=== PATIENT | male | born 1985 | race Native Hawaiian/Other Pacific Islander ===

== ENCOUNTER 2019-11-15 13:53 | Emergency (ER) | payer OTHER ==
[~2019-11-15] VITALS: Ht 170.2 cm; Wt 81.6 kg
[2019-11-15 13:53] VITALS: TEMP 99
[2019-11-15 14:11] LABS: PLATELET COUNT 296 K/uL (142-355)
[2019-11-15 14:19] LABS: POTASSIUM 3.2 mmol/L (3.6-5.2); SODIUM 139 mmol/L (136-145)
[2019-11-15 14:28] LABS: PARTIAL THROMBOPLASTIN TIME 23.6 SECONDS (24.5-33.6)
[2019-11-15 18:41] VITALS: BP 125/87
== END 2019-11-15 18:41 ==
LOC: ED 13:53
PROVIDERS: Hospitalist
PROC: 0T9B70Z Drainage of Bladder with Drainage Device, Via Natural or Artificial Opening (ICD-10-PCS; principal; 2019-11-15)
DX: T42.4X2A Poisoning by benzodiazepines, intentional self-harm, initial encounter (principal); F19.10 Other psychoactive substance abuse, uncomplicated; R53.81 Other malaise; Y92.89 Other specified places as the place of occurrence of the external cause
CPT/HCPCS: 36415; 51702; 80053; 80307; 80320; 80329; 81000; 82550; 83690; 83880; 84484; 85027; 85610; 85730; 93005; 96360; 96375; 99284; J2405

== ENCOUNTER 2019-11-23 09:02 | Emergency (ER) | payer OTHER ==
[~2019-11-23] VITALS: Ht 170.2 cm; Wt 81.6 kg
[2019-11-23 09:02] VITALS: TEMP 99
[2019-11-23 09:58] LABS: PLATELET COUNT 271 K/uL (142-355)
[2019-11-23 10:08] LABS: POTASSIUM 3.7 mmol/L (3.6-5.2)
[2019-11-23 10:46] VITALS: BP 120/75
== END 2019-11-23 10:46 ==
LOC: ED 09:02
PROVIDERS: Family Medicine
DX: R55 Syncope and collapse (principal)
CPT/HCPCS: 80053; 85027; 99283